=== PATIENT | male | born 1960 | race Caucasian/White ===

== ENCOUNTER 2019-11-05 09:51 | Day surgery (SDC) | payer BC ==
[~2019-11-05 09:51] MED LIST: ACETAMINOPHEN 1,000 MG/100 ML BTL IVPB ONE; CEFAZOLIN 2 Gram 2 GM/50 ML BAG IVPB ONE
[2019-11-05] MEDS ORDERED: ONDANSETRON HCL IV 4 MG/2 ML VIAL IVP ONE (09:52)
[2019-11-05] MEDS ORDERED: LIDOCAINE 2% MDV (20MG/ML) 20ML VIAL IV ONE (09:52)
[2019-11-05] MEDS ORDERED: GLYCOPYRROLATE 0.2 MG/ML ML IV ONE (09:52)
[2019-11-05] MEDS ORDERED: BUPIVACAINE 0.25% MPF 30ML VIAL IVP ONE (09:52)
[2019-11-05] MEDS ORDERED: FENTANYL PF 100MCG/2ML VIAL IV ONE (09:52)
[2019-11-05] MEDS ORDERED: DEXAMETHASONE 4 MG/ML 1ML VIAL IVP ONE (09:52)
[2019-11-05] MEDS ORDERED: PROPOFOL 10 MG/ML VIAL IV ONE (09:52)
[2019-11-05] MEDS ORDERED: ESMOLOL HCL 100 MG/10 ML ML IVP ONE (09:52)
[2019-11-05] MEDS ORDERED: BUPIVACAINE LIPOSOME/PF 133MG/10ML VIAL IV ONE (09:52)
[2019-11-05] MEDS ORDERED: *PACU ONLY* KETAMINE HCL 10 MG/ML (20ML) VIAL IV ONE (09:52)
[2019-11-05] MEDS ORDERED: MIDAZOLAM HCL 2MG/2ML VIAL IV ONE (09:52)
[2019-11-05] MEDS ORDERED: RINGERS SOLUTION,LACTATED 1,000 ML IV ONE ×2 (10:40→13:45)
[2019-11-05] MEDS ORDERED: MORPHINE SULFATE 10MG/1ML **1ML VIAL IU ONE (13:11)
[2019-11-05] MEDS ORDERED: BUPIVACAINE 0.5% W/EPI MPF 30 ML VIAL SQ ONE (13:11)
--- NOTE | 2019-11-06 16:20 | Operative Note ---
DATE OF SURGERY: 11/05/2019 PREOPERATIVE DIAGNOSIS: Tear of the rotator cuff on the left. POSTOPERATIVE DIAGNOSES: 1. 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 2. Complex glenohumeral labral tear superiorly. 3. Profound external impingement of left shoulder. 4. Arthrosis left distal clavicle. OPERATION: 1. Open repair of a chronically torn left rotator cuff tendon. 2. Left shoulder arthroscopy with interarticular debridement. 3. Left shoulder open acromioplasty, CA ligament resection, subacromial bursectomy. 4. Left shoulder distal clavicle resection. STAFF SURGEON: Arash Mendoza MD ANESTHESIA: Interscalene block with sedation. PREPARATION: Chloraprep. INDIVIDUAL CONSIDERATIONS: None. PROCEDURE: The patient was taken to the operating room, placed supine on the operating room table. Had a successful induction of a block, then sedation. He was then placed in a semi-seated beach chair position. His left arm was prepped and draped in the usual fashion. The patient had a full range of motion with no instability. The patient had a posterior portal identified for arthroscopy. Skin was infiltrated with 0.5% Marcaine with epinephrine prior. An 18-gauge spinal needle was placed in the joint, and the joint was inflated with normal saline. A stab wound was made, and a blunt-tipped trocar for the scope was placed in the joint. The joint was inflated with normal saline. An anterior accessory portal was then made just inferior to the intact long head of the biceps tendon in a retrograde fashion with a Wissinger kristopher, and the joint was irrigated out. Glenohumeral joint was normal. No loose bodies were seen in the pouch or either gutter. Subscap showed that at least the superior half was torn and retracted. Long head was intact. There appeared to be a small tear of the supraspinatus. There was fraying of the labrum. The labral fraying was debrided with a shaver. The joint was irrigated out and portals were closed with laila. The patient had an anterior approach to the subacromial space and distal clavicle. Skin was again infiltrated with 0.5% Marcaine with epinephrine prior. Sharp dissection carried down through skin and subcutaneous tissues. Small veins were coagulated with a Bovie. An anterior deltoid interval was developed. Care was taken not to split the deltoid more than about 4 cm distal to the anterior tip of the acromion to prevent injury to the axillary nerve. Once in the subacromial space, there was a basurto of fluid consistent with a tear. A very thick bursa. Spurs at the AC joint and spurs anteriorly on the acromion. The deltoid was then taken subperiosteally off the anterior aspect of the acromion, over the top of the intact CA ligament, and off the anterior aspect of a highly degenerated distal clavicle. CA ligament was resected with a Bovie. Distal clavicle was resected with an oscillating saw taking about 8 mm. He had a downsloping acromion with spur and an anterior acromioplasty was performed taking about 8 mm tapering towards posteromedially to include the spurs at the AC joint. The undersurface was then smoothed with a rasp. Now I was able to do a complete debridement of a very thickened bursa. Again, the superior half of the subscap was basically gone. There was nothing was try to repair. There was about a 1 to 1.5 cm tear of the supraspinatus, which I was able to mobilize, debride back to good bleeding tendon, bring back the tuberosity. I was able to suture it back down after freshening it with a gabbie and then placing retention sutures of #1 Ethibond into the end of the freshened tendon and then pulling into the tuberosity with sutures down distally tied down to effect an anatomic repair of at least the supraspinatus tendon. I placed the shoulder through a full range of motion to ensure no further impingement. After irrigation, the deltoid was reattached to the remaining acromion with multiple interrupted #2 Vicryl going directly through the bony acromion. The periosteal cuff of the distal clavicle was closed with running #2 Vicryl. Anterior deltoid interval was closed with running #1 Vicryl. Subcu was closed with 2-0 plus Vicryl and skin was closed with laila. An 18-gauge spinal needle was placed into the subacromial space. The space was then injected with 15 mL of 0.5% Marcaine with epinephrine along with 10 mg of morphine. A sterile bulky compressive dressing was applied. The patient tolerated the procedure well. Needle and sponge counts were correct. Estimated blood loss was minimal. He was taken back to recovery in good condition. There were no complications. MIRANDA
== END 2019-11-05 15:07 | disposition home or self-care (01) ==
LOC: SUR 09:51
PROVIDERS: ATTEND Orthopaedic Surgery
DX: M75.102 Unspecified rotator cuff tear or rupture of left shoulder, not specified as traumatic (principal); S43.432A Superior glenoid labrum lesion of left shoulder, initial encounter; M75.42 Impingement syndrome of left shoulder; M19.012 Primary osteoarthritis, left shoulder; I10 Essential (primary) hypertension
CPT/HCPCS: 23412; 23130; 23120; 01610; 64415; J2405; J3010; J0690; C9290; J2270; J7120